=== PATIENT | male | born 1980 | race Caucasian/White ===

== ENCOUNTER 2016-07-26 17:02 | Observation (INO) ==
--- NOTE | 2016-07-26 17:48 | Emergency Department Note ---
Disposition Clinical Impression: Weakness of right lower extremity Disposition: Still a Patient Condition: Fair Referrals: Tonny Ahumada MD [Primary Care Provider] - Forms: ED Satisfaction Letter Time of Disposition: 18:49 Extremity Problem HPI - General Chief complaint: ED Extremity Injury, Lower Stated complaint: leg pain & weakness Time Seen by Provider: 07/26/16 17:15 Source: patient, EMS Limitations: no limitations Nursing Notes Reviewed: Yes Vital Signs Reviewed: Yes - History of Present Illness HPI Narrative: 35-year-old male with no history of mechanical trauma, complaining of bilateral lower extremity weakness, right greater than left, he states that he has felt like his right leg is been weak for last 2 weeks since she has been seen before work, where he works at [employer]. Patient states that he has had similar symptoms in the past, and did have an MRI of his left knee about a month ago, this demonstrated mild MCL injury and meniscal injury. He previously had an MRI a year ago in September 2015 of his back, to evaluate after trauma. He states that he had some arthritis and degenerative changes at the time. Patient reports mild 3/10 crampy back pain, he has numbness in his right leg mostly in his thigh down to his knee and calf. But currently denies any pain in his right leg. Is no history of diabetes. + urinary incontinence, difficulty holding urination. Patient denies IV drug use. Does report chewing tobacco Pt Subjective Complaint: other (extremity weakness) Onset (ago): day(s) (10) Consistency: Worsening Injury Location: right, lower extremity Pain Scale: 1 Quality: dull, other (weak) Radiation: distal Improves with: nothing Worsens with: weight bearing Associated symptoms: Reports: bowel/bladder symptoms. Denies: chest pain, shortness of breath, abdominal pain, back pain - Related Data Home Medications Medication Instructions Recorded Confirmed Aspirin [Adult Low Dose Aspirin EC] 81 mg PO DAILY 07/25/15 11/03/15 Buspirone HCl [Buspar] 5 mg PO HS 07/25/15 11/03/15 Cyclobenzaprine [Flexeril] 10 mg PO HS 07/25/15 11/03/15 Enalapril Maleate [Vasotec] 10 mg PO HS 07/25/15 11/03/15 Ranitidine HCl [Zantac] 150 mg PO BID 07/25/15 11/03/15 Previous Rx's Medication Instructions Recorded Acetaminophen [Tylenol] 650 mg PO Q6HR PRN #0 tablet 11/04/15 OxyCODONE/APAP 5/325 [Percocet 1 each PO Q6H PRN #20 tablet 11/04/15 5/325 MG] Allergies Allergy/AdvReac Type Severity Reaction Status Date / Time No Known Allergies Allergy Verified 11/03/15 05:31 Review of Systems: A 10 point ROS was obtained from the historian. All other systems were reviewed and negative, except as per below, or as documented in the HPI. Constitutional: Denies: fever, chills, weight changes Eyes: Denies: vision changes, eye pain CV: Denies: chest pain, palpitations, leg swelling Resp: Denies: cough, dyspnea, wheezes, hemoptysis GI: Denies: abdominal pain, N/V/D/C, hematochezia, melena Denies: dysuria, hematuria MSK: Denies: back pain, neck pain, extremity pain Skin: Denies: new rashes, new lesions Neuro: weakness, sensory changes, gait difficulty Denies: CLEANING Psych: Denies: anxiety, depression All systems ED: reviewed and negative except as stated. Past Medical History - Past Medical History Attestation: Yes The following information was validated with the patient. Source: patient Medical history: Reports: hypertension, other Psychiatric history: Reports: anxiety - Social History Smoking Status: Never smoker Smokeless Tobacco Status: Yes Alcohol use: Reports: none Drug use: Reports: none Physical Exam Constitutional: alert and oriented, in NAD, vital signs reviewed and were normal limits HEENT: NCAT, sclera anicteric, PERRLA bilaterally, normal external ears bilaterally, nasal septum nondeviated, average dentition, MMM Neck: normal inspection, neck is supple, trachea midline, no JVD Resp: normal chest inspection, CTA bilaterally, no resp distress, symmetric chest rise CV: RRR, no m/g/r, Pulses +2 Rad, +2 DP/PT bilaterally, no pedal edema GI: normal inspection, Soft, NTND, BS present and normoactive Back: Mild tenderness to palpation low L-spine at the LS junction negative straight leg raise bilaterally Neuro: A&O3, CN II-XII grossly intact bilaterally, +3/4 DTRs bilat, beats of clonus bilateral lower extremity at the Achilles reflex. Gait antalgic secondary to pain MSK: normal inspection, bilateral UE and LE with normal ROM and no deformities Psych: normal mood, normal affect Skin: No rashes, skin warm, dry, intact - General Limitations: no limitations General appearance: alert Course Course Narrative: 35-year-old male with lower extremity weakness right greater than left, with MRI of L-spine to reevaluate to make sure there is no evidence of spinal stenosis or cauda equina given symptoms including urinary incontinence and physical exam that showed clonus and hyperreflexia. Also adding blood glucoses is for peripheral neuropathy, scan to be followed up by night resident/ attending ED team Vital Signs Temperature 98.2 F 07/26/16 17:04 Pulse Rate 112 07/26/16 17:04 Respiratory Rate 18 07/26/16 17:04 Blood Pressure 141/94 07/26/16 17:04 O2 Sat by Pulse Oximetry 99 07/26/16 17:04 Temperature 98.2 F 07/26/16 17:04 Pulse Rate 112 07/26/16 17:04 Respiratory Rate 18 07/26/16 17:04 Blood Pressure 141/94 07/26/16 17:04 O2 Sat by Pulse Oximetry 99 07/26/16 17:04 Oxygen Delivery Oxygen Delivery Room Air S.B.A.R. - S.B.A.R. Transition of Care: In MRI, pending scan results and disposition. Situation: Demographics, MOA Background: Presenting Complaint, Relevant PMH, Meds, & Allergies Assessment: Vital Signs, Course and respsone to treatment, Exam Concerns, Patient/Family Expectation, Pertinant Lab Results, Outstanding Labs Recommendation: Barrier(s) to disposition, Recommendation based on pending studies, treatments, or consults S.B.A.R. Report Given to: Chele BurgosBSohaAEdmund Repor Time: 18:49 Attestation Statement - Attestation Attestation: For this encounter, I have reviewed the resident, ASSISTANT WOMEN'S BASKETBALL COACH, or PA documentation, treatment plan, and medical decision making; and I have had face to face time with this patient. 35-year-old male presents with increasing weakness to the right lower extremity for the past 2 weeks as well as incontinence of urine. Patient states he has a history of chronic back pain which has been exacerbated after starting a new job where he stands throughout the day. Patient describes having loss of sensation in the genital area. No trauma or cumulative trauma, no recent unexplained weight loss, immunosuppression, unexplained fever, IVDU, prolonged steroids, not present more than 6 weeks, and no history of AAA. Patient signed out to Dr. Elaine pending MRI results and disposition.
--- NOTE | 2016-07-26 19:19 | Emergency Department Note ---
Disposition Clinical Impression: Weakness of right lower extremity Disposition: Still a Patient Condition: Fair Extremity Problem HPI - General Chief complaint: ED Extremity Injury, Lower Stated complaint: leg pain & weakness Time Seen by Provider: 07/26/16 17:15 Source: patient, EMS Limitations: no limitations Nursing Notes Reviewed: Yes Vital Signs Reviewed: Yes - History of Present Illness HPI Narrative: Proceed to sign off from Dr. Cedeño. History of present illness brief: Mr. Brugos, a 35yo male, presents from home via EMS with CC: bilateral lower extremity weakness with right greater than left with associated urinary incontinence. Gradual onset over the past 2 weeks. States worse throughout the day with standing and ambulation at work. States, toward the end of the day , he has to drag his right limb while walking. History degenerative joint disease. Patient denies trauma or drug use. Admits: bilateral lower extremity weakness, right greater than left. Urinary incontinence. Denies: Fever, chills, numbness, tingling, radiculopathy, trauma, illicit substance use. Consistency: Worsening Injury Location: right, lower extremity Pain Scale: 1 Quality: dull, other (weak) Improves with: nothing Worsens with: weight bearing Associated symptoms: Reports: bowel/bladder symptoms. Denies: chest pain, shortness of breath, abdominal pain, back pain - Related Data Home Medications Medication Instructions Recorded Confirmed Aspirin [Adult Low Dose Aspirin EC] 81 mg PO DAILY 07/25/15 11/03/15 Buspirone HCl [Buspar] 5 mg PO HS 07/25/15 11/03/15 Cyclobenzaprine [Flexeril] 10 mg PO HS 07/25/15 11/03/15 Enalapril Maleate [Vasotec] 10 mg PO HS 07/25/15 11/03/15 Ranitidine HCl [Zantac] 150 mg PO BID 07/25/15 11/03/15 Previous Rx's Medication Instructions Recorded Acetaminophen [Tylenol] 650 mg PO Q6HR PRN #0 tablet 11/04/15 OxyCODONE/APAP 5/325 [Percocet 1 each PO Q6H PRN #20 tablet 11/04/15 5/325 MG] Allergies Allergy/AdvReac Type Severity Reaction Status Date / Time No Known Allergies Allergy Verified 11/03/15 05:31 Past Medical History - Past Medical History Medical history: Reports: hypertension, other Psychiatric history: Reports: anxiety - Social History Smoking Status: Never smoker Smokeless Tobacco Status: Yes Alcohol use: Reports: none Drug use: Reports: none Physical Exam Initial physical exam performed by Dr. Bonilla. Physical exam after signoff: General: Patient is alert, oriented, and in no acute distress. HEENT: No facial asymmetry. Head is normocephalic and atraumatic. PERRLA. Trachea midline. Cardiovascular: Heart regular rate and rhythm without clicks, rubs, gallops, or murmurs. No JVD. PMI nondisplaced. Respiratory: Symmetric chest rise with good respiratory effort. Bilateral breath sounds are clear without wheezing, crackles, or rhonchi. Abdomen: Bowel sounds present normoactive x-4 quadrants. Abdomen is soft, nondistended, and nontender. No organomegaly noted. Musculoskeletal: tenderness to palpation of L-spine at sacro-lumbar junction. Bilateral achilles DTR hyperreflexia with clonus. Neuro: Cranial nerves II through XII without deficit. Sensation light touch intact. Psych: Patient's affect is appropriate for situation. - General Limitations: no limitations General appearance: alert Course Course Narrative: POC glucose pending. Patient does not have a history of diabetes and clinical suspicion of peripheral neuropathy is low. MRI lumbar spine is pending. It tends to rule out concerns regarding cauda equina. POC glucose 88. On my physical exam, no exam findings of peripheral neuropathy. MRI lumbar spine was not concerning for acute pathology. It did show chronic degenerative joint disease as well as stable spinal stenosis in the lower lumbar spine. Cardiology report comments on a suspicious finding at the conus medullaris which could be artifacts; recommendation was for MRI thoracic spine. After discussion with my attending and with the patient, he shared decision making the decision was made to move forward with MRI thoracic spine. ' 20:[address] Riggs He is suspecting MS. Patient has patchy abnormal signal. His recommendation is scanning his brain and C-spine. Recommended studies for complete eval: Brain with & without, C-spine with and without, Post eufemia for T-spine. Spoke with the patient, his mother, and his sister at bedside. Updated them regarding my concerns and the need to continue moving forward. Patient was initially reluctant to have additional imaging as she states she is claustrophobic. I apologize for not asking this question prior to his first MRI and provide him with appropriate medication to calm and relaxed him for his next MRI. Initially wanted to go home to take care of his and daughter. We had a discussion regarding the need for him to take care of himself so that he is still able and healthy to take care of his and daughter. This seemed to hit home with him and he agreed for continued study and the possibility of admission. 20:[address] Pagan. Relayed the radiologist interpretation of the patient's T -spine. He agrees to consult on the patient with hospitalist admission. He recommends initiating treatment: 1000mg solumedrol IVPB qdaily x3 days then outpatient thpy. Spoke with Dr. Tobin. I will complete a full lab workup to clearly eliminate potential occult infectious sources prior to beginning his antibiotic therapy. In my discussion with Dr. Tobin, he will begin steroids once lab work returns and will consult IR for LP tomorrow. Spoke with the patient, his sister, his mother, and his to update on current status. They appreciated over this wire and had no additional questions. Vital Signs Temperature 98.2 F 07/26/16 17:04 Pulse Rate 112 07/26/16 17:04 Respiratory Rate 18 07/26/16 17:04 Blood Pressure 141/94 07/26/16 17:04 O2 Sat by Pulse Oximetry 99 07/26/16 17:04 Temperature 97.6 F 07/27/16 01:10 Pulse Rate 98 07/27/16 01:10 Respiratory Rate 14 07/27/16 01:10 Blood Pressure 115/79 07/27/16 01:10 O2 Sat by Pulse Oximetry 96 07/27/16 01:10 Oxygen Delivery Oxygen Delivery Room Air Extremity Problem, Nontraumati - Lab Data Result diagrams: 07/27/16 00:31 07/27/16 00:31 Lab Results 07/27/16 07/27/16 07/27/16 Range/Units 00:31 00:31 00:31 WBC 14.2 H (4.3-11.1) K/mcL RBC 5.65 H (4.19-5.50) M/mcL Hgb 15.9 (12.9-16.9) g/dL Hct 47.9 (37.5-50.1) % MCV 84.8 (83.0-100.0) fL MCH 28.1 (28.0-33.3) pg MCHC 33.2 (31.6-35.5) g/dL RDW 13.2 (11.5-14.5) % Plt Count 409 H (140-400) K/mcL MPV 9.1 L (9.4-12.4) fL Immature Gran % 0.4 (0-4) % Seg Neutrophils % 75.1 % Lymphocytes % 15.5 % Monocytes % 8.2 % Eosinophils % 0.4 % Basophils % 0.4 % Neutrophils # 10.7 H (1.6-8.9) K/mcL Lymphocytes # 2.2 (0.6-4.6) K/mcL Monocytes # 1.2 (0.0-1.3) K/mcL Eosinophils # 0.1 (0.0-0.6) K/mcL Basophils # 0.1 (0.0-0.2) K/mcL Immature Plt Fraction 1.8 (1.1-6.1) % ESR 33 H (0-10) mm/hr PT 14.1 H (9.4-12.1) Seconds INR 1.3 Sodium (136-145) mEq/L Potassium (3.5-4.5) mEq/L Chloride (98-109) mEq/L Carbon Dioxide (19-29) mEq/L BUN (8-26) mg/dL Creatinine (0.72-1.25) mg/dL Est GFR ( Amer) (> 60) Est GFR (Non-Af Amer) (> 60) BUN/Creatinine Ratio (6-26) Glucose (70-99) mg/dL Calculated Osmolality (280-300) Calcium (8.6-10.8) mg/dL Total Bilirubin (0.2-1.2) mg/dL AST (5-34) Units/L ALT (0-55) Units/L Alkaline Phosphatase (38-126) Units/L C-Reactive Protein (Less than 5) mg/L Serum Total Protein (6.0-8.3) g/dL Albumin (3.5-5.0) g/dL Globulin (2.4-3.5) g/dL Albumin/Globulin Ratio (1.1-2.2) 07/27/16 07/27/16 Range/Units 00:31 00:31 WBC (4.3-11.1) K/mcL RBC (4.19-5.50) M/mcL Hgb (12.9-16.9) g/dL Hct (37.5-50.1) % MCV (83.0-100.0) fL MCH (28.0-33.3) pg MCHC (31.6-35.5) g/dL RDW (11.5-14.5) % Plt Count (140-400) K/mcL MPV (9.4-12.4) fL Immature Gran % (0-4) % Seg Neutrophils % % Lymphocytes % % Monocytes % % Eosinophils % % Basophils % % Neutrophils # (1.6-8.9) K/mcL Lymphocytes # (0.6-4.6) K/mcL Monocytes # (0.0-1.3) K/mcL Eosinophils # (0.0-0.6) K/mcL Basophils # (0.0-0.2) K/mcL Immature Plt Fraction (1.1-6.1) % ESR (0-10) mm/hr PT (9.4-12.1) Seconds INR Sodium 140 (136-145) mEq/L Potassium 4.0 (3.5-4.5) mEq/L Chloride 108 (98-109) mEq/L Carbon Dioxide 21 (19-29) mEq/L BUN 12 (8-26) mg/dL Creatinine 0.72 (0.72-1.25) mg/dL Est GFR ( Amer) > 60 (> 60) Est GFR (Non-Af Amer) > 60 (> 60) BUN/Creatinine Ratio 17 (6-26) Glucose 99 (70-99) mg/dL Calculated Osmolality 290 (280-300) Calcium 9.1 (8.6-10.8) mg/dL Total Bilirubin 1.2 (0.2-1.2) mg/dL AST 16 (5-34) Units/L ALT 31 (0-55) Units/L Alkaline Phosphatase 69 (38-126) Units/L C-Reactive Protein 17 H (Less than 5) mg/L Serum Total Protein 7.4 (6.0-8.3) g/dL Albumin 3.8 (3.5-5.0) g/dL Globulin 3.6 H (2.4-3.5) g/dL Albumin/Globulin Ratio 1.1 (1.1-2.2) Attestation Statement - Attestation Attestation: I, Neno Elaine MD, personally performed a history and physical exam of the patient and discussed their management with the resident. I reviewed the resident's note and agree with the documented findings, medical decision making , and plan of care. This patient was signed out at shift change from Dr. Bonilla and Dr. Kennedy. Please refer to their notes for complete details of the history and physical examination. At shift change patient is awaiting results of an MRI of the lumbar spine. Patient presented with a one-week history of increasing weakness of the lower extremities, worse on the right. He also has developed some mild intermittent urinary incontinence. Some lower back pain. He denies history of chronic back trouble. He has reached the point that he is having difficulty ambulating. On examination patient is a well-developed morbidly obese male in no acute distress. He is alert and oriented 3. There is no cyanosis or diaphoresis. Breath sounds are equal bilaterally. Heart regular rate and rhythm. Abdomen soft and nontender with normal bowel sounds. Some mild mid to lower back tenderness on direct palpation. Patient does have hyper reflexes in the lower extremities. MRI of the lumbar spine showed some mild degenerative changes but no acute spinal stenosis. There was however some suspicious area in the conus which was not completely visualized and the radiologist recommended an MRI of the thoracic spine. This was ordered radiologist called back and advising that there were multiple suspicious areas in the spine consistent with MS. Radiologist recommended MRI of the brain and cervical spine with and without contrast and also repeat thoracic with contrast. These were ordered and the final readings are pending. Dr. Espinoza discussed the patient and findings with the neurologist building construction ironworker, Dr. Pagan, and he recommended admission by the hospitalist with IV Solu-Medrol 1000 mg. The hospitalist, Dr. Aguilar, was consulted and accepted admission of the patient.
[2016-07-26] MEDS ORDERED: *HR* LORazepam 2 MG/ML VIAL IVP ONE (22:20)
[2016-07-27 00:38] LABS: Basophils # 0.1 K/mcL (0.0-0.2); Basophils % 0.4 %; Eosinophils # 0.1 K/mcL (0.0-0.6); Eosinophils % 0.4 %; Hematocrit 47.9 % (37.5-50.1); Hemoglobin 15.9 g/dL (12.9-16.9); Immature Granulocytes % 0.4 % (0-4); Immature Platelets 1.8 % (1.1-6.1); Lymphocytes # 2.2 K/mcL (0.6-4.6); Lymphocytes % 15.5 %; Mean Corpuscular HGB Conc 33.2 g/dL (31.6-35.5); Mean Corpuscular Hemoglobin 28.1 pg (28.0-33.3); Mean Corpuscular Volume 84.8 fL (83.0-100.0); Mean Platelet Volume 9.1 fL (9.4-12.4); Monocytes # 1.2 K/mcL (0.0-1.3); Monocytes % 8.2 %; Neutrophils # 10.7 K/mcL (1.6-8.9); Platelet Count 409 K/mcL (140-400); Red Blood Count 5.65 M/mcL (4.19-5.50); Red Cell Distribution Width 13.2 % (11.5-14.5); Segmented Neutrophils % 75.1 %
[2016-07-27 00:42] LABS: INR 1.3; Prothrombin Time 14.1 Seconds (9.4-12.1)
[2016-07-27 00:51] LABS: Alanine Aminotransferase 31 Units/L (0-55); Albumin 3.8 g/dL (3.5-5.0); Albumin/Globulin Ratio 1.1 (1.1-2.2); Alkaline Phosphatase 69 Units/L (38-126); Aspartate Amino Transferase 16 Units/L (5-34); BUN/Creatinine Ratio 17 (6-26); Bilirubin,Total 1.2 mg/dL (0.2-1.2); Blood Urea Nitrogen 12 mg/dL (8-26); Calcium 9.1 mg/dL (8.6-10.8); Carbon Dioxide 21 mEq/L (19-29); Chloride 108 mEq/L (98-109); Globulin 3.6 g/dL (2.4-3.5); Glucose 99 mg/dL (70-99); Osmolality,Calculated 290 (280-300); Sodium 140 mEq/L (136-145); Total Protein 7.4 g/dL (6.0-8.3); eGFR For African Americans > 60 (> 60); eGFR For Non-African Americans > 60 (> 60)
--- NOTE | 2016-07-27 01:31 | Internal Med History&Physical ---
<CervantesJovanni - Last Filed: 07/27/16 03:16> Date of Encounter: 07/27/16 Time of Encounter: 01:31 Assessment and Plan (1) Lower extremity weakness Status: Acute Symptoms and MRI findings concerning for MS; neurology consulted Inflammatory markers were mildly elevated but MRI suggests level of inflammation is greater than markers indicate Will defer starting high dose glucocorticoids prior to neurology evaluating patient Rule out other causes including infectious, autoimmune with HIV, Hepatitis and respiratory infectious panel, CHARLIE/RF Qualifiers: Qualified Code(s): R29.898 - Other symptoms and signs involving the musculoskeletal system (2) Hypertension Status: Chronic Blood pressures have been stable since admission Will continue on home dose of Enalapril Qualifiers: Qualified Code(s): I10 - Essential (primary) hypertension (3) Anxiety Status: Chronic Patient does not appear to be in acute distress Continue home medication Buspar (4) DVT prophylaxis Status: Acute SCDs in case he needs procedure Internal Medicine - H&P: HPI Chief complaint: weakness of lower extremities Admitted From: Home Plans for Post Hospital Care: Home History of present illness: Mr. Burgos is a 35 year old male who presents to the emergency department with weakness of his lower extremities, right worse than left. 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 He describes difficulty walking due to the weakness and needs his to support him in order to ambulate. He also admits to having urinary incontinence that started around the same time and affects his roughly every other day. He denies any injury but does report falling at least 4-5 times in the past several months due to weakness. He does have chronic left knee pain which an MRI showed injury of the MCL and meniscus. He denies any visual/hearing problems, chest pain, nausea, vomiting, fevers, chills, headaches , numbness or tingling. He does not report any history of cancers, blood clots, lung or heart conditions. He does have history of HTN and anxiety and is compliant with his medications. Past Med Surg Social Fam HX - Past Medical History Medical history: hypertension, other Psychiatric history: anxiety - Social History Smoking Status: Never smoker Smokeless Tobacco Status: Yes Alcohol use: none Drug use: none - Family History Mother Living Status: Still Living Hx Family Cardiac Disorders: Yes Hx Family Respiratory Disorders: No Hx Family Cancer: No Hx Family GI Disorders: No Hx Family Endocrine Disorder: No Hx Family Neuromuscular Disorders: No Hx Family Neurologic Disorders: No Hx Family HEENT Disorders: No Hx Family Autoimmune Disorders: No Father Family Member Ethnicity: Non- Living Status: Age at : 55 Cause of : [place] Hx Family Cardiac Disorders: Yes (multiple heart attack) Internal Medicine - H&P: Meds Aspirin [Adult Low Dose Aspirin EC] 81 mg PO DAILY 07/25/15 [History] Buspirone HCl [Buspar] 10 mg PO HS 07/25/15 [History] Cyclobenzaprine [Flexeril] 5 mg PO HS 07/25/15 [History] Enalapril Maleate [Vasotec] 5 mg PO HS 07/25/15 [History] Ranitidine HCl [Zantac] 150 mg PO BID 07/25/15 [History] Methylprednisolone Sod Succ/Pf [Solu-Medrol 1,000 mg Vial] 1,000 mg IV ONCE #1 vial 07/28/16 [Rx] OxyCODONE Immed Rel [Roxicodone 5 MG] 10 mg PO Q6HR PRN #30 tablet 07/28/16 [Rx] PredniSONE 10 mg PO AD #30 tablet 07/28/16 [Rx] Pregabalin [Lyrica] 25 mg PO TID #90 capsule 07/28/16 [Rx] Allergies No Known Allergies Allergy (Verified 11/03/15 05:31) All Systems PM: A 10-system review of systems was performed and is negative for pertinent findings except as documented above in the HPI. - Constitutional Constitutional: falls, weakness, no chills, no fever(s), no night sweats - EENT Eyes: no change in vision, no discharge, no pain, no photophobia Ears: no ear discharge, no ear pain, no tinnitus Nose, mouth and throat: no dysphagia, no nasal discharge, no neck pain, no sore throat - Cardiovascular Cardiovascular ROS IM: no chest pain, no diaphoresis, no dyspnea, no lightheadedness, no palpitations, no syncope - Respiratory Respiratory: no cough, no dyspnea, no wheezing, no excessive phlegm production - Gastrointestinal Gastrointestinal: no abdominal pain, no diarrhea, no hematemesis, no hematochezia, no melena, no nausea, no vomiting - Genitourinary Genitourinary ROS male: urinary incontinence - Musculoskeletal Musculoskeletal ROS IM: muscle weakness, no numbness, no tingling - Integumentary Integumentary IM: no rash, no unusual bruising - Neurological Neurological ROS: frequent falls, no confusion, no convulsions, no focal weakness, no numbness, no tingling, no tremor(s) - Hematologic/Lymphatic Hematologic/Lymphatic: no easy bruising - Constitutional Vitals: Temp Pulse Resp BP Pulse Ox 97.6 F 98 14 115/79 96 07/27/16 01:10 07/27/16 01:10 07/27/16 01:10 07/27/16 01:10 07/27/16 01:10 General appearance: Present: cooperative, morbidly obese, pleasant, no acute distress, answers questions appropriately - Head Head exam: Present: atraumatic, normocephalic - Eye Eye exam: Present: PERRL, conjuntiva pink, sclera anicteric - Neck Neck exam general surgery: Present: supple, trachea midline. Absent: lymphadenopathy - Respiratory Respiratory exam: Present: CTAB. Absent: accessory muscle use, rales, rhonchi, wheezes - Cardiovascular Cardiovascular exam: Present: RRR, +S1, +S2. Absent: diastolic murmur, gallop, rubs, systolic murmur - GI/Abdominal GI/Abdominal exam: Present: normal bowel sounds, soft, no peritoneal signs. Absent: distended, tenderness - Extremities Exam Extremities exam: Present: warm, radial pulses palpable and symetrical. Absent : calf tenderness, cyanotic, pedal edema - Neurological Exam Neurological exam: Present: alert, CN II-XII intact, no focal deficits. Absent : facial droop, speech deficit Additional comments: clonus exhibited at the patellar tendon - Skin Skin exam: Present: dry, intact Internal Med - H&P Results - Labs CBC & Chem 7: 07/27/16 00:31 07/27/16 00:31 <Fortunato Carbajal - Last Filed: 07/28/16 23:55> Date of Encounter: 07/27/16 Assessment and Plan (1) Morbid obesity with BMI of 40.0-44.9, adult Status: Chronic . (2) DJD (degenerative joint disease) Status: Chronic . Qualifiers: Osteoarthritis location: unspecified site Osteoarthritis type: unspecified Qualified Code(s): M19.90 - Unspecified osteoarthritis, unspecified site (3) Urinary incontinence Status: Acute . Qualifiers: Urinary Incontinence type: unspecified incontinence Qualified Code(s): R32 - Unspecified urinary incontinence (4) Hyperreflexia Status: Acute . (5) Clonus Status: Acute . (6) Numbness and tingling of both legs Status: Acute . (7) Gait disturbance Status: Acute . (8) Demyelinating disease of central nervous system Status: Acute . (9) Demyelinating disease of the spinal cord Status: Acute . (10) Lower extremity weakness Status: Acute . Qualifiers: Laterality: bilateral Qualified Code(s): R29.898 - Other symptoms and signs involving the musculoskeletal system (11) Anxiety Status: Chronic . (12) Hypertension Status: Chronic . Qualifiers: Hypertension type: essential hypertension Qualified Code(s): I10 - Essential (primary) hypertension Internal Medicine - H&P: HPI History of present illness: Mr. Burgos is a 35 year old male admitted to [facility] via the emergency room with chief complaint of progressive weakness. Patient was visited and interviewed and examined. For this encounter, I have reviewed the documentation, treatment plan, and medical decision making. I examined this patient and my medical decision-making was reviewed with the Resident Physician. I agree with the documented findings, disposition and treatment plan as described except to the extent set forth below. Cumulative laboratory and radiographic data base was reviewed and considered and discussed. Given the patient's presenting concerns, past medical history, clinical findings and symptoms, he is admitted at this time to undergo further evaluation and disposition. Orders written. All Systems PM: A 10-system review of systems was performed and is negative for pertinent findings except as documented above in the HPI. - Constitutional Vitals: Temp Pulse Resp BP Pulse Ox 97.3 F L 105 14 118/81 95 07/28/16 08:33 07/28/16 08:33 07/28/16 08:33 07/28/16 08:33 07/28/16 08:33 Internal Med - H&P Results - Labs CBC & Chem 7: 07/28/16 04:53 07/27/16 03:01 Labs: Short CBC 07/28/16 Range/Units 04:53 WBC 14.5 H (4.3-11.1) K/mcL Hgb 15.5 (12.9-16.9) g/dL Hct 46.0 (37.5-50.1) % Plt Count 389 (140-400) K/mcL Neutrophils # 13.5 H (1.6-8.9) K/mcL - Impressions Vital Signs Temp Pulse Resp BP Pulse Ox 07/28/16 08:33 97.3 F L 105 14 118/81 95 07/28/16 07:50 96 07/28/16 03:37 97.4 F L 96 18 114/73 97 07/28/16 00:35 98.0 F 89 18 120/81 96 Intake and Output 07/28/16 07/28/16 07/28/16 07:59 15:59 23:59 Intake Total 342.0 / 342.0 960 / 960 Output Total 950 / 950 0 / 0 Balance -608.0 / -608.0 960 / 960 Intake: IV Fluids 342.0 / 342.0 0.9 % Sodium Chloride 1, 342.0 / 342.0 000 ML @ 50 mls/hr IVC . Q20H ABDULAZIZ Rx#:[id number] Oral 0 / 0 960 / 960 Output: Urine 950 / 950 0 / 0 Other: Meal Lunch Percent of Meal Consumed 100% Blood Glucose* 160 Abnormal lab results WBC 14.5 K/mcL (4.3-11.1) H 07/28/16 04:53 Neutrophils # 13.5 K/mcL (1.6-8.9) H 07/28/16 04:53 ESR 33 mm/hr (0-10) H 07/27/16 00:31 PT 14.1 Seconds (9.4-12.1) H 07/27/16 00:31 Glucose 107 mg/dL (70-99) H 07/27/16 03:01 POC Glucose 160 (58-89) H 07/28/16 10:35 C-Reactive Protein 17 mg/L (Less than 5) H 07/27/16 00:31 Globulin 3.6 g/dL (2.4-3.5) H 07/27/16 00:31 HDL Cholesterol 27 mg/dL (40-59) L 07/27/16 03:01 Ur Specific [place] > 1.030 (1.010-1.025) H 07/27/16 03:19 Urine Ketones 15 mg/dL (Negative) H 07/27/16 03:19 Ur Squamous Epith Cells Moderate per lpf (None-Few) H 07/27/16 03:19 Laboratory Results WBC 14.5 K/mcL (4.3-11.1) H 07/28/16 04:53 RBC 5.46 M/mcL (4.19-5.50) 07/28/16 04:53 Hgb 15.5 g/dL (12.9-16.9) 07/28/16 04:53 Hct 46.0 % (37.5-50.1) 07/28/16 04:53 MCV 84.2 fL (83.0-100.0) 07/28/16 04:53 MCH 28.4 pg (28.0-33.3) 07/28/16 04:53 MCHC 33.7 g/dL (31.6-35.5) 07/28/16 04:53 RDW 13.2 % (11.5-14.5) 07/28/16 04:53 Plt Count 389 K/mcL (140-400) 07/28/16 04:53 MPV 9.6 fL (9.4-12.4) 07/28/16 04:53 Immature Gran % 0.5 % (0-4) 07/28/16 04:53 Seg Neutrophils % 93.2 % 07/28/16 04:53 Lymphocytes % 5.4 % 07/28/16 04:53 Monocytes % 0.8 % 07/28/16 04:53 Eosinophils % 0.0 % 07/28/16 04:53 Basophils % 0.1 % 07/28/16 04:53 Neutrophils # 13.5 K/mcL (1.6-8.9) H 07/28/16 04:53 Lymphocytes # 0.8 K/mcL (0.6-4.6) 07/28/16 04:53 Monocytes # 0.1 K/mcL (0.0-1.3) 07/28/16 04:53 Eosinophils # 0.0 K/mcL (0.0-0.6) 07/28/16 04:53 Basophils # 0.0 K/mcL (0.0-0.2) 07/28/16 04:53 Immature Plt Fraction 1.8 % (1.1-6.1) 07/27/16 00:31 ESR 33 mm/hr (0-10) H 07/27/16 00:31 PT 14.1 Seconds (9.4-12.1) H 07/27/16 00:31 INR 1.3 07/27/16 00:31 APTT 31.1 Seconds (26.0-36.0) 07/28/16 04:53 D-Dimer 478 ng/mLFEU (0-500) 07/28/16 04:53 Sodium 137 mEq/L (136-145) 07/27/16 03:01 Potassium 3.8 mEq/L (3.5-4.5) 07/27/16 03:01 Chloride 105 mEq/L (98-109) 07/27/16 03:01 Carbon Dioxide 22 mEq/L (19-29) 07/27/16 03:01 BUN 11 mg/dL (8-26) 07/27/16 03:01 Creatinine 0.75 mg/dL (0.72-1.25) 07/27/16 03:01 Est GFR ( Amer) > 60 (> 60) 07/27/16 03:01 Est GFR (Non-Af Amer) > 60 (> 60) 07/27/16 03:01 BUN/Creatinine Ratio 15 (6-26) 07/27/16 03:01 Glucose 107 mg/dL (70-99) H 07/27/16 03:01 POC Glucose 160 (58-89) H 07/28/16 10:35 Est Mean Plasma Glucose 100 mg/dl 07/28/16 04:53 Hemoglobin A1c 5.1 % (-5.6) 07/28/16 04:53 Calculated Osmolality 284 (280-300) 07/27/16 03:01 Lactic Acid 0.7 mmol/L (0.5-2.2) 07/28/16 04:53 Calcium 9.1 mg/dL (8.6-10.8) 07/27/16 03:01 Total Bilirubin 1.2 mg/dL (0.2-1.2) 07/27/16 00:31 AST 16 Units/L (5-34) 07/27/16 00:31 ALT 31 Units/L (0-55) 07/27/16 00:31 Alkaline Phosphatase 69 Units/L (38-126) 07/27/16 00:31 Creatine Kinase 37 Units/L (30-200) 07/28/16 04:53 C-Reactive Protein 17 mg/L (Less than 5) H 07/27/16 00:31 Serum Total Protein 7.4 g/dL (6.0-8.3) 07/27/16 00:31 Albumin 3.8 g/dL (3.5-5.0) 07/27/16 00:31 Globulin 3.6 g/dL (2.4-3.5) H 07/27/16 00:31 Albumin/Globulin Ratio 1.1 (1.1-2.2) 07/27/16 00:31 Triglycerides 60 mg/dL (< 150) 07/27/16 03:01 Cholesterol 121 mg/dL (< 200) 07/27/16 03:01 LDL Cholesterol, Calc 82 mg/dL (0-99) 07/27/16 03:01 VLDL Cholesterol, Calc 12 mg/dL (< 31) 07/27/16 03:01 HDL Cholesterol 27 mg/dL (40-59) L 07/27/16 03:01 Cholesterol/HDL Ratio 4.5 (0-4.9) 07/27/16 03:01 Vitamin B12 444 pg/mL (213-816) 07/28/16 04:53 Folate 8.6 ng/mL (7.0-31.4) 07/28/16 04:53 TSH 0.775 mcIU/mL (0.350-4.840) 07/28/16 04:53 Urine Color Yellow (Yellow) 07/27/16 03:19 Urine Clarity Clear (Clear) 07/27/16 03:19 Urine pH 6.0 pH Units (5.0-8.0) 07/27/16 03:19 Ur Specific [place] > 1.030 (1.010-1.025) H 07/27/16 03:19 Urine Protein Trace mg/dL (Neg-Trace) 07/27/16 03:19 Urine Glucose (UA) Normal mg/dL (Normal) 07/27/16 03:19 Urine Ketones 15 mg/dL (Negative) H 07/27/16 03:19 Urine Blood Negative (Negative) 07/27/16 03:19 Urine Nitrite Negative (Negative) 07/27/16 03:19 Urine Bilirubin Negative (Negative) 07/27/16 03:19 Urine Urobilinogen Normal mg/dL (Normal) 07/27/16 03:19 Ur Leukocyte Esterase Negative (Negative) 07/27/16 03:19 Urine Microscopic RBC 0-3 per hpf (0-3) 07/27/16 03:19 Urine Microscopic WBC 0-3 per hpf (0-3) 07/27/16 03:19 Ur Squamous Epith Cells Moderate per lpf (None-Few) H 07/27/16 03:19 Urine Bacteria None Seen per hpf (None-Few) 07/27/16 03:19 Hyaline Casts None Seen per lpf (None-Few) 07/27/16 03:19 Ur Culture Indicated? NO (NO) 07/27/16 03:19 Urine Opiates Screen Negative ng/mL (Xxrasa=368) 07/27/16 04:55 Ur Barbiturates Screen Negative ng/mL (Fbtulz=167) 07/27/16 04:55 Ur Phencyclidine Scrn Negative ng/mL (Cutoff=25) 07/27/16 04:55 Ur Amphetamines Screen Negative ng/mL (Jnfnne=9014) 07/27/16 04:55 U Benzodiazepines Scrn Negative ng/mL (Jjcrbm=362) 07/27/16 04:55 Urine Cocaine Screen Negative ng/mL (Cutoff= 300) 07/27/16 04:55 U Marijuana (THC) Screen Negative ng/mL (Cutoff = 50) 07/27/16 04:55 Rheumatoid Factor < 15 IU/mL (0-29) 07/27/16 03:01 Hepatitis A IgM Ab Nonreactive (Nonreactive) 07/27/16 03:01 Hep Bs Antigen Nonreactive (Nonreactive) 07/27/16 03:01 Hep B Core IgM Ab Nonreactive (Nonreactive) 07/27/16 03:01 Hepatitis C Ab Screen Nonreactive (Nonreactive) 07/27/16 03:01 HIV Ag/Ab Combo Qual Nonreactive (Nonreactive) 07/27/16 03:01 Impressions Lumbar Spine MRI 07/26/16 17:30 IMPRESSION: Mild degenerative disc disease in the lumbar spine as described above, grossly stable. Spinal canal narrowing, minimal at T11-12. Foraminal narrowing, minimal at right L5-S1. Question of mildly increased T2 signal in the partially visualized conus medullaris, may be related to artifacts. Further evaluation with MRI thoracic spine is recommended. D/ / Jimmie Hernandez MD / Jimmie Hernandez MD Interpreting Provider: Jimmie Hernandez MD Brain MRI 07/26/16 22:17 IMPRESSION: 1. Multiple T2/FLAIR hyperintense foci involving the periventricular, deep, and subcortical white matter of both cerebral hemispheres in a distribution highly concerning for underlying demyelinating disease (multiple sclerosis). Single subcortical lesion within the anterior right frontal lobe demonstrates patchy incomplete ring of enhancement, suspicious for active demyelination. No other definite evidence for active demyelination identified. 2. Otherwise normal MRI of the brain. D/ / Stewart Goff MD / Stewart Goff MD Interpreting Provider: Stewart Goff MD Cervical Spine MRI 07/26/16 22:17 IMPRESSION: 1. Abnormal patchy T2 signal intensity throughout the brainstem and cervical spinal cord, highly concerning for underlying demyelinating disease. There are enhancing lesions at the craniocervical junction, at the right dorsolateral cord at C2 through C3-4, and within the cord at T3, concerning for active demyelination. 2. Mild DJD as above without significant stenosis. D/ / Stewart Goff MD / Stewart Goff MD Interpreting Provider: Stewart Goff MD Thoracic Spine MRI 07/26/16 22:17 IMPRESSION: 1. Abnormal patchy T2 signal intensity throughout the thoracic spinal cord, highly concerning for underlying demyelinating disease. Enhancing lesions at T2, T3, T8-9, and T11, concerning for active demyelination. 2. Small central disc protrusion at T3-4 without stenosis. D/ / Stewart Goff MD / Stewart Goff MD Interpreting Provider: Stewart Goff MD - Attending Attestation My signature below is to certify that this patient is under my care and that I, or the Resident Physician working with me, has had a [id number] encounter with this patient. Care has been reviewed and discussed in detail with the patient. Questions addressed. Advance care directive discussion briefly addressed. Patient does not declare any healthcare restrictions at this time. Outpatient medications scheduled reviewed, confirmed and facilitated as appropriate. Reconciliation of home treatments including adjustments, substitutions and reintroduction at the treatment regimen will address necessary benefits therapies for chronic pre-existing medical conditions. Hospital course will be dependent upon clinical findings, treatment response and potential constitutive interventions. Initial consultative opinion has been requested with neurology. The patient is at risk for acute clinical decline and morbidity given this presenting chief complaint, findings and comorbid conditions. Condition is serious. Prognosis is cautiously optimistic. CODE STATUS is full.
[2016-07-27] MEDS ORDERED: Acetaminophen 325 MG TABLET PO PRN (02:35)
[2016-07-27] MEDS ORDERED: Ondansetron ODT 4 MG TAB.RAPDIS SL PRN (02:35)
[2016-07-27] MEDS ORDERED: Naloxone 0.4 MG/ML INJ IVP PRN (02:35)
[2016-07-27] MEDS ORDERED: *HR* OxyCODONE/APAP 5/325 TABLET PO PRN (02:46)
[2016-07-27 03:18] LABS: Hematocrit 46.1 % (37.5-50.1); Hemoglobin 15.6 g/dL (12.9-16.9); Mean Corpuscular HGB Conc 33.8 g/dL (31.6-35.5); Mean Corpuscular Hemoglobin 28.6 pg (28.0-33.3); Mean Corpuscular Volume 84.6 fL (83.0-100.0); Mean Platelet Volume 9.5 fL (9.4-12.4); Platelet Count 367 K/mcL (140-400); Red Blood Count 5.45 M/mcL (4.19-5.50); Red Cell Distribution Width 13.2 % (11.5-14.5)
[2016-07-27 03:28] LABS: Rheumatoid Factor < 15 IU/mL (0-29)
[2016-07-27 03:29] LABS: BUN/Creatinine Ratio 15 (6-26); Blood Urea Nitrogen 11 mg/dL (8-26); Calcium 9.1 mg/dL (8.6-10.8); Carbon Dioxide 22 mEq/L (19-29); Chloride 105 mEq/L (98-109); Chol/HDL Ratio 4.5 (0-4.9); Cholesterol 121 mg/dL (< 200); Glucose 107 mg/dL (70-99); HDL Cholesterol 27 mg/dL (40-59); LDL Cholesterol,Calculated 82 mg/dL (0-99); Osmolality,Calculated 284 (280-300); Potassium 3.8 mEq/L (3.5-4.5); Sodium 137 mEq/L (136-145); Triglycerides 60 mg/dL (< 150); eGFR For African Americans > 60 (> 60); eGFR For Non-African Americans > 60 (> 60)
[2016-07-27 03:38] LABS: Bilirubin,Urine Negative (Negative); Blood,Urine Negative (Negative); Clarity,Urine Clear (Clear); Color,Urine Yellow (Yellow); Glucose,Urine (UA) Normal (Normal); Ketones,Urine 15 mg/dL (Negative); Leukocyte Esterase,Urine Negative (Negative); Nitrite,Urine Negative (Negative); Protein,Urine Trace mg/dL (Neg-Trace); Specific Gravity,Urine > 1.030 (1.010-1.025); Urobilinogen,Urine Normal (Normal)
[2016-07-27 03:40] LABS: Bacteria,Urine None Seen per hpf (None-Few); Hyaline Casts,Urine None Seen per lpf (None-Few); RBC,Urine 0-3 per hpf (0-3); Squamous Epithelial Cell,Urine Moderate per lpf (None-Few); WBC,Urine 0-3 per hpf (0-3)
[2016-07-27 03:49] LABS: Hepatitis B Surface Antigen Nonreactive (Nonreactive)
[2016-07-27 05:12] LABS: Amphetamine Screen,Urine Negative ng/mL (Cutoff=1000); Barbiturate Screen,Urine Negative ng/mL (Cutoff=200); Benzodiazepines Screen,Urine Negative ng/mL (Cutoff=200); Cannabinoid Screen,Urine Negative ng/mL (Cutoff = 50); Cocaine Screen,Urine Negative ng/mL (Cutoff= 300); Opiate Screen,Urine Negative ng/mL (Cutoff=300); Phencyclidine Screen,Urine Negative ng/mL (Cutoff=25)
[2016-07-27] MEDS ORDERED: *HR* HYDROmorphone (PF) 1 MG/ML SYRINGE IVP PRN ×2 (05:40→11:28)
[2016-07-27] MEDS ORDERED: *HR* Promethazine 25 MG/ML VIAL IVP PRN (05:40)
[2016-07-27] MEDS ORDERED: *HR* OxyCODONE Immed Rel 5 MG TABLET PO PRN ×2 (05:40→11:29)
[2016-07-27] MEDS: Famotidine 20 MG TABLET PO SCH ×2 (08:30→21:00)
[2016-07-27] MEDS: 0.9 % Sodium Chloride 1,000 ML IVC SCH (08:30)
[2016-07-27] MEDS: Aspirin Enteric Coated 81 MG Tablet PO SCH (08:30)
[2016-07-27] MEDS: Pregabalin 25 MG CAPSULE PO SCH ×3 (08:30→21:00)
--- NOTE | 2016-07-27 09:04 | Neurology - Consult Note ---
Date of Encounter: 07/27/16 Time of Encounter: 08:00 Assessment and Plan (1) Demyelinating disease of central nervous system Current Visit: Yes Status: Acute This patient was been having these symptoms predominantly in his lower extremities for quite some time and now for the past 2 weeks he has been having increasing symptoms in his right lower extremity as well, with some urinary incontinence. He already had MRI of his brain as well as his cervical thoracic and lumbar spine. It shows multiple demyelinating plaques throughout the cervical and thoracic spine as well as on his brain. These vision seems to be quite typical demyelinating plaques predominantly along the corpus callosum, but quite typical appearance commonly noted in the patient with MULTIPLE SCLEROSIS. his urinary incontinence is likely related to central etiology as well. He has already been scheduled for a spinal tap though, has multiple lesions predominantly in the brain as well as an cervical and thoracic spine , few of them seems to be active lesions, and his brain as well as in the cervical spine are likely reason for his acute symptoms. At times vision with these multiple lesions in different needle axis may note need to have in a spinal tap, as diagnosis is quite obvious, but as he is already scheduled we may proceed with it, would suggest that we should check for other causes of demyelination as well including, serum hector level, as well as for FTA antibodies and particularly for oligoclonal bands. At the same time also suggest to get blood work for other causes like vitamin B12 deficiency folate, TSH, and CHARLIE as well as for lupus anticoagulant. As these conditions sometime could be the cause of demyelination and need to be excluded as well. He is already started on high dose pulse of steroids suggested that he should continue for at least 3 days along with GI prophylaxis, patient would require neurology follow-up as an outpatient once he is stabilized, he would probably need short-term rehabilitation as well due to the weakness of his lower extremities. He will need to be on immunomodulating agents that could be started later on as an outpatient. Discussed and explained to the patient in detail. (2) Demyelinating disease of the spinal cord Current Visit: Yes Status: Acute (3) Weakness of right lower extremity Current Visit: Yes Status: Acute History of Present Illness HPI: Mr. Burgos is a 35 year old male who presents to the emergency department with weakness of his lower extremities, right worse than left. 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 He describes difficulty walking due to the weakness and needs help to ambulate. He also admits to having urinary incontinence for the past 2 eeks along with numbness in legs. He denies any injury but does report falling at least 4-5 times in the past several months due to weakness. He does have chronic left knee pain which an MRI showed injury of the MCL and meniscus. recently had EMG as well, He denies any visual problems, particularly NO double vision, no chest pain, nausea, vomiting, fevers, chills, headaches, numbness or tingling. He does not report any history of cancers, blood clots, lung or heart conditions. He does have history of HTN and anxiety and takes his meds on regular basis. Past Med Surg Social Fam HX - Past Medical History Medical history: hypertension, other Psychiatric history: anxiety - Past Surgical History Surgical History: cholecystectomy - Social History Smoking Status: Never smoker Smokeless Tobacco Status: Yes Alcohol use: none Drug use: none - Family History Father Family Member Ethnicity: Non- Living Status: Age at : 55 Cause of : [place] Hx Family Cardiac Disorders: Yes (multiple heart attack) Mother Age: 52 Family Member Ethnicity: Non- Living Status: Still Living Hx Family Cardiac Disorders: Yes Hx Family Respiratory Disorders: No Hx Family Cancer: No Hx Family GI Disorders: No Hx Family Endocrine Disorder: No Hx Family Musculoskeletal Disorders: Yes (Degenerative joint disease) Hx Family Neuromuscular Disorders: No Hx Family Neurologic Disorders: No Hx Family HEENT Disorders: No Hx Family Autoimmune Disorders: No Medications and Allergies Aspirin [Adult Low Dose Aspirin EC] 81 mg PO DAILY 07/25/15 [History] Buspirone HCl [Buspar] 5 mg PO HS 07/25/15 [History] Cyclobenzaprine [Flexeril] 10 mg PO HS 07/25/15 [History] Enalapril Maleate [Vasotec] 10 mg PO HS 07/25/15 [History] Ranitidine HCl [Zantac] 150 mg PO BID 07/25/15 [History] Acetaminophen [Tylenol] 650 mg PO Q6HR PRN #0 tablet 11/04/15 [Rx] OxyCODONE/APAP 5/325 [Percocet 5/325 MG] 1 each PO Q6H PRN #20 tablet 11/04/15 [ Rx] Allergies No Known Allergies Allergy (Verified 11/03/15 05:31) All Systems: A 10-system review of systems was performed and is negative for pertinent findings except as documented above in the HPI. Review of Systems: A 10-system review of systems was performed and is negative for pertinent findings except as documented above in the HPI. Physical Examination - Vital Signs Vital Signs: Initial Vital Signs Temp Pulse Resp BP Pulse Ox 98.2 F 112 18 141/94 99 07/26/16 17:04 07/26/16 17:04 07/26/16 17:04 07/26/16 17:04 07/26/16 17:04 - Exam Exam: HEART : S1 S 2 AUDIBLE, LUNGS: CTA, EXT : NO PEDAL EDEMA, EYES: NO MANUEL - Constitutional General appearance: comfortable - Neurologic Sensorimotor examination: intact Motor examination - right side: 3/5: grain grader, hip flexors, tibialis Anterior, quadriceps, toe extension (EHL), plantarflexion, 5/5: deltoids, biceps, triceps , wrist flexion, wrist extension Motor examination - left side: 4/5: hip flexors, grain grader, quadriceps, tibialis Anterior, toe extension (EHL), plantarflexion, 5/5: deltoids, biceps, triceps, wrist flexion, wrist extension Detailed sensory examination: intact Reflex and gait examination: intact Reflexes: Biceps: 2+, Triceps: 2+, Brachioradialis: 2+, Patella: 2+, Achilles: 2 + Mental Status Examination: awake, alert, oriented to person, oriented to place, oriented to time, follows commands appropriately, answers questions appropriately, no agnosia, no aphasia, no aproxia Cranial nerve examination: PERRL, EOMI, visual damon intact, corneal reflexes brisk symmetrically, sensory to face intact, mastication intact, no facial asymmetry is present, no dysarthria, hearing is intact symmetrically, soft palate elevates bilaterally upon phonation, gag reflex intact, flexes SCM and trapezius muscles symmetrically with full power, tongue protrudes midline, no atrophy or facial fasiculations present Cerebellar examination: no dysmetria Results - Laboratory Findings CBC and BMP: 07/27/16 03:01 07/27/16 03:01 Abnormal lab findings: Abnormal lab results WBC 14.7 K/mcL (4.3-11.1) H 07/27/16 03:01 Neutrophils # 10.7 K/mcL (1.6-8.9) H 07/27/16 00:31 ESR 33 mm/hr (0-10) H 07/27/16 00:31 PT 14.1 Seconds (9.4-12.1) H 07/27/16 00:31 Glucose 107 mg/dL (70-99) H 07/27/16 03:01 C-Reactive Protein 17 mg/L (Less than 5) H 07/27/16 00:31 Globulin 3.6 g/dL (2.4-3.5) H 07/27/16 00:31 HDL Cholesterol 27 mg/dL (40-59) L 07/27/16 03:01 Ur Specific [place] > 1.030 (1.010-1.025) H 07/27/16 03:19 Urine Ketones 15 mg/dL (Negative) H 07/27/16 03:19 Ur Squamous Epith Cells Moderate per lpf (None-Few) H 07/27/16 03:19 - Diagnostic Findings Additional findings: MRI OF BRAIN : Showed Multiple T2/FLAIR hyperintense foci involving the periventricular, deep, and subcortical white matter of both cerebral hemispheres in a distribution highly concerning for underlying demyelinating disease (multiple sclerosis). Single subcortical lesion within the anterior right frontal lobe demonstrates patchy incomplete ring of enhancement, suspicious for active demyelination. MRI of cervical Spine : showed Abnormal patchy T2 signal intensity throughout the brainstem and cervical spinal cord, highly concerning for underlying demyelinating disease. along with enhancing lesions at the craniocervical junction, at the right dorsolateral cord at C2 through C3-4, and within the cord at T3, concerning for active demyelination. Mild DJD as above without significant stenosis MRI T spine also showed multiple lesion through out the T spine Consult Discharge Plan - Plan Referrals: Tonny Ahumada MD [Primary Care Provider] -
[2016-07-27 09:17] LABS: HIV-1&2 Antibody & p24 Ag Nonreactive (Nonreactive); Hepatitis A Antibody IgM Nonreactive (Nonreactive); Hepatitis B Core IgM Nonreactive (Nonreactive); Hepatitis C Virus Antibody Nonreactive (Nonreactive)
[2016-07-27] MEDS ORDERED: methylPREDNISolone 125 MG/2 ML VIAL IVP ONE (09:19)
--- NOTE | 2016-07-27 09:19 | Event Note ---
Date of Encounter: 07/27/16 Time of Encounter: 09:19 35-year-old male with history of hypertension and anxiety, presents with worsening right leg weakness. Patient has had some weakness in his left leg for at least a year but noticed right leg weakness along with some urinary incontinence for the last 4-5 days. He is unable to lift his right leg off the bed and needs assistance for ambulation. Patient seen and examined. He reports no chest pain, shortness of breath. No dysphagia, facial droop or blurred vision. No weakness in his hands. Awake alert and oriented 3. Obese. Chest-S1, S2 heard, regular rate and rhythm. Lungs are clear to auscultation. 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 Motor power 5 over 5 in bilateral upper extremities. 3 over 5 in right lower extremity, 4 over 5 in left lower extremity. Knee and ankle jerks are hyperactive in bilateral lower extremities. Biceps and triceps reflexes 1+ bilaterally. MRI brain, cervical and thoracic spine show findings suggestive of demyelinating disease like multiple sclerosis, with areas of active demyelination. Labs show no acute abnormality except mild leukocytosis at 14. ESR and CRP is minimally elevated. Urinalysis shows no evidence of infection. Chest x-ray shows no focal infiltrates. Demyelinating central nervous system disease Bilateral lower extremity weakness Neurology has been consulted, recommended high-dose IV steroids for acute inflammation. Start Solu-Medrol 1 g daily. Continue to monitor clinically. Supportive care. Physical and occupational therapy evaluation. Patient will need outpatient urology follow-up when stable. Will continue home medications for other comorbidities.
[2016-07-27] MEDS ORDERED: Melatonin 3 MG TABLET PO SCH (22:45)
[2016-07-28 05:08] LABS: Basophils % 0.1 %; Hemoglobin 15.5 g/dL (12.9-16.9); Immature Granulocytes % 0.5 % (0-4); Lymphocytes # 0.8 K/mcL (0.6-4.6); Lymphocytes % 5.4 %; Mean Corpuscular HGB Conc 33.7 g/dL (31.6-35.5); Mean Corpuscular Hemoglobin 28.4 pg (28.0-33.3); Mean Corpuscular Volume 84.2 fL (83.0-100.0); Mean Platelet Volume 9.6 fL (9.4-12.4); Monocytes # 0.1 K/mcL (0.0-1.3); Monocytes % 0.8 %; Neutrophils # 13.5 K/mcL (1.6-8.9); Platelet Count 389 K/mcL (140-400); Red Blood Count 5.46 M/mcL (4.19-5.50); Red Cell Distribution Width 13.2 % (11.5-14.5); Segmented Neutrophils % 93.2 %
[2016-07-28 05:11] LABS: Activated Partial Thrombo Time 31.1 Seconds (26.0-36.0)
[2016-07-28 05:14] LABS: Hemoglobin A1C 5.1 %
[2016-07-28 05:37] LABS: Thyroid Stimulating Hormone 0.775 mcIU/mL (0.350-4.840)
[2016-07-28 05:54] LABS: Folate 8.6 ng/mL (7.0-31.4)
[2016-07-28] MEDS: 0.9 % Sodium Chloride 1,000 ML IVC SCH (06:00)
[2016-07-28] MEDS: Aspirin Enteric Coated 81 MG Tablet PO SCH (07:52)
[2016-07-28] MEDS: Pregabalin 25 MG CAPSULE PO SCH (07:52)
[2016-07-28] MEDS: Famotidine 20 MG TABLET PO SCH (07:52)
[2016-07-28 08:34] VITALS: BP 118/81
[2016-07-28] MEDS ORDERED: D5% in Water 1,000 ML IV PRN (08:45)
[2016-07-28] MEDS ORDERED: Dextrose Gel 15 GM PO PRN ×2 (08:45)
[2016-07-28] MEDS ORDERED: *HR* Dextrose 50 % in Water (Syg) 50 ML SYRINGE IVP PRN (08:45)
--- NOTE | 2016-07-28 08:45 | Neurology Progress Note ---
Date of Encounter: 07/28/16 Time of Encounter: 08:22 Assessment and Plan (1) Demyelinating disease of central nervous system Current Visit: Yes Status: Acute Improvement in the lower extremity weakness after high-dose of steroids overall he is doing better. Patient wanted to go home and would like to follow up as an outpatient. Considering pt symptoms, particularly lesions in his cervical thoracic spine as well as multiple lesion in the brain, likely related to multiple sclerosis. At this time do not think he would certainly require a spinal tap or not. Other workup is already in place. As patient really wants to go home today suggested after the second dose of IV pulse equal to start him on prednisone Dosepak for 1 week and slowly tapered the dose. He could be followed up in neurology as an outpatient in the next few weeks In at that time we will determine how to start him on immune modulating therapy. Discussed explained to the patient he agrees with the plan (2) Demyelinating disease of the spinal cord Current Visit: Yes Status: Acute (3) Weakness of right lower extremity Current Visit: Yes Status: Acute Subjective Interval history: Patient report improvement in overall weakness particularly weakness in the lower extremities has improved since yesterday he is getting second dose of high doses of IV steroids Objective - Constitutional Vitals: Temp Pulse Resp BP Pulse Ox 97.3 F L 105 14 118/81 95 07/28/16 08:33 07/28/16 08:33 07/28/16 08:33 07/28/16 08:33 07/28/16 08:33 - Neurological Exam Sensorimotor examination: Present: intact Motor examination - right side: 4/5: hip flexors, tibialis Anterior, quadriceps , toe extension (EHL), plantarflexion, 5/5: deltoids, biceps, triceps, wrist flexion, wrist extension, keno writer Motor examination - left side: 4/5: hip flexors, keno writer, quadriceps, tibialis Anterior, toe extension (EHL), plantarflexion, 5/5: deltoids, biceps, triceps, wrist flexion, wrist extension Sensation intact: Present: intact Reflex and gait examination: intact Mental Status Examination: Present: awake, alert, oriented to person, oriented to place, oriented to time, follows commands appropriately, answers questions appropriately, no agnosia, no aphasia, no aproxia Cranial nerve examination: Present: PERRL, EOMI, visual damon intact, corneal reflexes brisk symmetrically, sensory to face intact, mastication intact, no facial asymmetry is present, no dysarthria, hearing is intact symmetrically, soft palate elevates bilaterally upon phonation, gag reflex intact, flexes SCM and trapezius muscles symmetrically with full power, tongue protrudes midline, no atrophy or facial fasiculations present Cerebellar examination: Present: no dysmetria - VTE Documentation of Mechanical Device: Intermittent pneumatic compression device Results - Laboratory Findings CBC and BMP: 07/28/16 04:53 07/27/16 03:01 Abnormal lab findings: Abnormal lab results WBC 14.5 K/mcL (4.3-11.1) H 07/28/16 04:53 Neutrophils # 13.5 K/mcL (1.6-8.9) H 07/28/16 04:53 ESR 33 mm/hr (0-10) H 07/27/16 00:31 PT 14.1 Seconds (9.4-12.1) H 07/27/16 00:31 Glucose 107 mg/dL (70-99) H 07/27/16 03:01 C-Reactive Protein 17 mg/L (Less than 5) H 07/27/16 00:31 Globulin 3.6 g/dL (2.4-3.5) H 07/27/16 00:31 HDL Cholesterol 27 mg/dL (40-59) L 07/27/16 03:01 Ur Specific [place] > 1.030 (1.010-1.025) H 07/27/16 03:19 Urine Ketones 15 mg/dL (Negative) H 07/27/16 03:19 Ur Squamous Epith Cells Moderate per lpf (None-Few) H 07/27/16 03:19 Consult Discharge Plan - Plan Referrals: Tonny Ahumada MD [Primary Care Provider] -
--- NOTE | 2016-07-28 09:41 | Discharge Summary ---
Date of Encounter: 07/29/16 Time of Encounter: 09:37 - Discharge Diagnosis (1) Demyelinating disease of central nervous system Priority: Primary Status: Acute (2) Demyelinating disease of the spinal cord Priority: Primary Status: Acute (3) Lower extremity weakness Priority: Primary Status: Acute Qualifiers: Laterality: bilateral Qualified Code(s): R29.898 - Other symptoms and signs involving the musculoskeletal system - Discharge Medications Prescriptions: OxyCODONE Immed Rel [Roxicodone 5 MG] 10 mg PO Q6HR PRN #30 tablet PRN Reason: Moderate Pain (4-6) Methylprednisolone Sod Succ/Pf [Solu-Medrol 1,000 mg Vial] 1,000 mg IV ONCE #1 vial PredniSONE 10 mg PO AD #30 tablet Pregabalin [Lyrica] 25 mg PO TID #90 capsule Home Medications: Aspirin [Adult Low Dose Aspirin EC] 81 mg PO DAILY 07/25/15 [History] Buspirone HCl [Buspar] 10 mg PO HS 07/25/15 [History] Cyclobenzaprine [Flexeril] 5 mg PO HS 07/25/15 [History] Enalapril Maleate [Vasotec] 5 mg PO HS 07/25/15 [History] Ranitidine HCl [Zantac] 150 mg PO BID 07/25/15 [History] Methylprednisolone Sod Succ/Pf [Solu-Medrol 1,000 mg Vial] 1,000 mg IV ONCE #1 vial 07/28/16 [Rx] OxyCODONE Immed Rel [Roxicodone 5 MG] 10 mg PO Q6HR PRN #30 tablet 07/28/16 [Rx] PredniSONE 10 mg PO AD #30 tablet 07/28/16 [Rx] Pregabalin [Lyrica] 25 mg PO TID #90 capsule 07/28/16 [Rx] Allergies/Adverse Reactions: Allergies No Known Allergies Allergy (Verified 11/03/15 05:31) Date of admission: 07/27/16 00:32 Primary care physician: oTnny Ahumada MD Consults: 07/27/16 01:39 Consult to Photo Tech [CONS] Routine Reason for SW Consult: Pt provider for family, weakness/falls at home and work. 07/27/16 02:42 Consult to Occupational Therapy [CONS] Routine Comment: Evaluate, develop and implement POC Consult to Physical Therapy [CONS] Routine Comment: Evaluate, develop and implement POC Discharging clinician: Vinita Bolden - Patient Status Disposition: Home, Self-Care Condition: Good Functional capacity at discharge: uses cane/walker Overall status at discharge: patient is progressing back to baseline - Ambulatory Orders Ambulatory Orders: Consult to Physical Therapy [CONS] Time Frame: 2 Days, Facility: [facility], Location: [facility] [address] - Discharge Instructions Follow Up With: Tonny Ahumada MD [Primary Care Provider] - 08/05/16 10:30 am Joan Busby MD [Partnered Physician] - 08/11/16 11:00 am Interval History: Mr. Burgos is a 35 year old male who presents to the emergency department with weakness of his lower extremities, right worse than left. 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 He describes difficulty walking due to the weakness and needs help to ambulate. He also admits to having urinary incontinence for the past 2 weeks along with numbness in legs. He denies any injury but does report falling at least 4-5 times in the past several months due to weakness. He does have chronic left knee pain which an MRI showed injury of the MCL and meniscus. recently had EMG as well, He denies any visual problems, particularly NO double vision, no chest pain, nausea, vomiting, fevers, chills, headaches, numbness or tingling. He does not report any history of cancers, blood clots, lung or heart conditions. He does have history of HTN and anxiety and takes his meds on regular basis. MRI of his brain as well as his cervical thoracic and lumbar spine.It shows multiple demyelinating plaques throughout the cervical and thoracic spine as well as on his brain.These seems to be quite typical demyelinating plaques predominantly along the corpus callosum, but quite typical appearance commonly noted in the patient with MULTIPLE SCLEROSIS.his urinary incontinence is likely related to central etiology as well.lab workup ordered for vitamin B12 deficiency folate, TSH, and CHARLIE as well as for lupus anticoagulant. As these conditions sometime could be the cause of demyelination and need to be excluded as well. Patient was started on high dose pulse of steroids. Patient had marked improvement of his symptoms after receiving 2 doses of IV steroids. Patient discussed with neurology team neurology team agreed was discharged after evaluation was physical therapy. Patient was discharged home in stable condition to follow up with neurology in 2 -3 weeks for further illness starting of long-term medication , immune modulating agent Hospital course: Mr. Burgos is a 35 year old male - Time Spent with Patient Total time spent providing and/or coordinating discharge services: Greater than 30 minutes - Constitutional Vitals: Temp Pulse Resp BP Pulse Ox 97.3 F L 105 14 118/81 95 07/28/16 08:33 07/28/16 08:33 07/28/16 08:33 07/28/16 08:33 07/28/16 08:33 General appearance: Present: cooperative, morbidly obese, pleasant, no acute distress, answers questions appropriately - VTE Documentation of Mechanical Device: Intermittent pneumatic compression device
[2016-07-28] MEDS ORDERED: Insulin LISPRO 300 UNITS/3 ML VIAL SQ SCH ×2 (11:30→21:00)
[2016-07-29 15:09] LABS: ANA IgG by ELISA NONE DETECTED (None Detected)
[2016-07-29 15:11] LABS: ANA IgG by ELISA NONE DETECTED (None Detected)
[2016-07-29 17:27] LABS: APTT (LE Anticoag) 40 sec (32-48); Diluted Russell Viper Venom 36 sec (33-44); PT (LE-Anticoag) 14.1 sec (12.0-15.5)
== END 2016-07-28 14:40 | disposition home or self-care (01) ==
LOC: 3BNU 17:02 → EMEROO 17:02 → SUATTDRO 07-27 00:32 → 3ANU 07-27 00:38
PROVIDERS: ADMIT Internal Medicine; ATTEND Internal Medicine